=== PATIENT | male | born 1960 | race African-American/Black ===

== ENCOUNTER 2024-10-18 18:38 | Emergency (ER) | payer OTHER ==
[~2024-10-18] VITALS: Ht 177.8 cm; Wt 86.2 kg
[2024-10-18 19:31] LABS: PLATELET COUNT (AUTO) 181 K/uL (150-450); RED BLOOD CELL COUNT(AUTO) 4.42 MIL/uL (4.5-6.0); RED CELL DISTRIBUTION WIDTH 15.5 % (11.5-15.0); WHITE BLOOD COUNT (AUTO) 4.4 K/uL (4.3-11.0)
[2024-10-18 19:42] LABS: CALCIUM, SERUM 8.8 mg/dL (8.5-10.1); CREATININE 0.9 mg/dL (0.6-1.3); SODIUM SERUM 137 mmol/L (136-145); UREA NITROGEN, BLOOD 10 mg/dL (7-18)
[2024-10-18 19:49] LABS: ASPARTATE AMINOTRANSFERASE 15 U/L (15-37); TOTAL PROTEIN, SERUM 7.3 g/dL (6.4-8.2)
[2024-10-18 19:51] LABS: ALCOHOL, BLOOD < 3 mg/dL (0-10)
[2024-10-18] MEDS ORDERED: KETOROLAC TROMETHAMINE INJ 30 MG/ML VIAL ONE (20:29)
[2024-10-18] MEDS ORDERED: BACLOFEN (10 MG) 10 MG TABLET ONE (20:29)
[2024-10-18] MEDS ORDERED: TRAMADOL HCL 50 MG TABLET ONE (20:29)
[2024-10-18] MEDS: BACLOFEN (10 MG) 10 MG TABLET PO ONE (20:41)
[2024-10-18] MEDS: KETOROLAC TROMETHAMINE INJ 30 MG/ML VIAL IV ONE (20:41)
[2024-10-18] MEDS: TRAMADOL HCL 50 MG TABLET PO ONE (20:41)
[2024-10-18 20:56] LABS: APPEARANCE,URINE CLEAR (CLEAR); BLOOD, URINE NEGATIVE Ery/uL (NEGATIVE); LEUKOCYTE ESTERASE ,URINE NEGATIVE (NEGATIVE); NITRITE, URINE NEGATIVE (NEGATIVE); UGLUCOSE NEGATIVE (NEGATIVE)
[2024-10-18 20:57] LABS: BARBITURATE, URINE NEGATIVE (NEGATIVE); BENZODIAZEPINE, URINE NEGATIVE (NEGATIVE); CANNABINOID, URINE NEGATIVE (NEGATIVE); COCCAINE, URINE NEGATIVE (NEGATIVE)
[2024-10-18 21:04] LABS: ADD URINE CULTURE NO
[2024-10-18 21:09] LABS: AMPHETAMINE, URINE POSITIVE (NEGATIVE); OPIATE, URINE POSITIVE (NEGATIVE)
[2024-10-18 23:56] VITALS: BP 144/88; TEMP 98.3; O2SAT 97
== END 2024-10-18 23:56 | disposition home or self-care (01) ==
LOC: ER 18:43
DX: R06.02 Shortness of breath (principal); R42 Dizziness and giddiness; R05.9 Cough, unspecified; G89.29 Other chronic pain; F32.A Depression, unspecified; R44.0 Auditory hallucinations; Z20.822 Contact with and (suspected) exposure to COVID-19
CPT/HCPCS: 99285; 96374; 93005; 71045; 70450; 85025; 80048; 80076; 81001; 36415; 84484; 83880; 87426; 80143; 80320; 80307; J1885; G0480

== ENCOUNTER 2024-10-21 08:12 | Emergency (ER) | payer OTHER ==
[~2024-10-21] VITALS: Ht 188 cm; Wt 104.3 kg
[2024-10-21 08:37] LABS: PLATELET COUNT (AUTO) 186 K/uL (150-450); RED BLOOD CELL COUNT(AUTO) 4.72 MIL/uL (4.5-6.0); RED CELL DISTRIBUTION WIDTH 15.4 % (11.5-15.0); WHITE BLOOD COUNT (AUTO) 5.1 K/uL (4.3-11.0)
[2024-10-21 08:45] LABS: CALCIUM, SERUM 9.2 mg/dL (8.5-10.1); CREATININE 0.8 mg/dL (0.6-1.3); SODIUM SERUM 136 mmol/L (136-145); UREA NITROGEN, BLOOD 8 mg/dL (7-18)
[2024-10-21 08:49] LABS: ALCOHOL, BLOOD 35 mg/dL (0-10); ASPARTATE AMINOTRANSFERASE 19 U/L (15-37); TOTAL PROTEIN, SERUM 8.4 g/dL (6.4-8.2)
[2024-10-21 09:31] LABS: APPEARANCE,URINE CLEAR (CLEAR); BLOOD, URINE TRACE-INTA Ery/uL (NEGATIVE); LEUKOCYTE ESTERASE ,URINE NEGATIVE (NEGATIVE); NITRITE, URINE NEGATIVE (NEGATIVE); UGLUCOSE NEGATIVE (NEGATIVE)
[2024-10-21 09:40] LABS: ADD URINE CULTURE NO; SQUAMOUS EPITHELIAL CELL,UR 0-2 /HPF (None Seen)
[2024-10-21 09:46] LABS: BARBITURATE, URINE NEGATIVE (NEGATIVE); BENZODIAZEPINE, URINE NEGATIVE (NEGATIVE); COCCAINE, URINE NEGATIVE (NEGATIVE)
[2024-10-21 09:48] LABS: AMPHETAMINE, URINE POSITIVE (NEGATIVE); CANNABINOID, URINE POSITIVE (NEGATIVE); OPIATE, URINE POSITIVE (NEGATIVE)
[2024-10-21] MEDS ORDERED: OLANZAPINE 5 MG TABLET ONE (10:58)
[2024-10-21] MEDS ORDERED: LORAZEPAM 1 MG TABLET ONE (10:58)
[2024-10-21] MEDS: LORAZEPAM 1 MG TABLET PO ONE (11:07)
[2024-10-21] MEDS: OLANZAPINE 5 MG TABLET PO ONE (11:08)
[2024-10-21 15:30] VITALS: BP 133/79; TEMP 98.4; O2SAT 97
== END 2024-10-21 16:06 ==
LOC: ER 08:25
DX: R45.851 Suicidal ideations (principal); F10.10 Alcohol abuse, uncomplicated; F11.10 Opioid abuse, uncomplicated; F12.10 Cannabis abuse, uncomplicated; F15.10 Other stimulant abuse, uncomplicated; F17.200 Nicotine dependence, unspecified, uncomplicated; F32.A Depression, unspecified; Z20.822 Contact with and (suspected) exposure to COVID-19; Z59.00 Homelessness unspecified; Y90.1 Blood alcohol level of 20-39 mg/100 ml
CPT/HCPCS: 36415; 80048-TC; 80076-TC; 81001; 85025-TC; G0480